=== PATIENT | male | born 1960 | race Caucasian/White ===

== ENCOUNTER 2021-04-24 09:47 | Day surgery (SDC) | payer OTHER, SELFPAY ==
[2021-04-24] VITALS (13 sets, daily range): BP systolic 108–148; BP diastolic 53–88; PULSE 49–63; RESP 14–23; TEMP 36.4; O2SAT 94–98; BMI 27.2
--- NOTE | 2021-04-24 09:52 | XR_ITS ---
WS: [id number] XR chest 1V portable [id number] REASON FOR EXAM: chest pain FINDINGS: The chest is unchanged compared to 03/25/2017. Heart and mediastinum are within normal limits. Calcified granulomatous disease is present in both hemithoraces. No active pulmonary parenchymal or pleural disease. Bony thorax is intact. XR/XR chest 1V portable [id number] IMPRESSION: No acute chest abnormality.
--- NOTE | 2021-04-24 09:52 | ECG_ITS ---
[facility] Test Date: 2021-04-24 Pat Name: Marty Ricks Department: Room: Gender: Male Intervention Teacher: : 1960 Requested By: Codie Jasmine Order Number: [id number] Velasquez MD: Kory Geronimo M.D. Measurements Intervals [place] Rate: 58 P: 17 HI: 154 QRS: 59 QRSD: 86 T: 67 QT: 433 QTc: 428 Interpretive Statements SINUS BRADYCARDIA Compared to ECG 03/25/2017 09:46:05 Sinus rhythm no longer present Electronically Signed On 04-24-2021 18:30:29 ENGINEERING RECRUITER by Kory Geronimo M.D. [email or web address]/[id number]
--- NOTE | 2021-04-24 10:15 | ED_ITS ---
HPI - Chest Pain General: Chief Complaint: ER Hold Stated Complaint: CP Time Seen by Provider: 04/24/21 10:15 History of Present Illness: Mr. Ricks is a 61-year-old gentleman with sig nificant past medical history of hypertension, hyperlipidemia, history of CAD status post PCI who presents to the emergency department due to chest discomfort. He reports over the past few weeks he has had intermittent episodes of discomfort in the left anterior chest without significant radiation. These are typically associated with exertion and he has associated shortness of breath, no nausea, and generalized malaise when present. He presents today as this current episode has not improved like other ones. Previous episodes of lasted into the hours range. They resolved subsequently. Intensity of symptoms is moderate. Course has been worsening in frequency. He denies other specific known changes in health, exacerbating, relieving factors. He has not had recent cardiac evaluation. Pertinent past history: coronary artery disease and prior NC Onset (ago): week(s) Timing of current episode: episodic and constant Prior episodes: Yes Pain location: left chest Severity: moderate Quality: aching Relieving factors: nothing Exacerbating factors: nothing Associated symptoms: Reports no associated symptoms Review of Systems General: Reports: 10 or more systems reviewed and unremarkable except in HPI and below PFSH ED PFSH: Medical History ASHD (arteriosclerotic heart disease) HTN (hypertension) Hyperlipidemia Surgical History S/P PTCA (percutaneous transluminal coronary angioplasty) Status post angioplasty with stent X3 Family History Mother CHF (congestive heart failure) Sister Cancer Diabetes Father Stroke Social History Smoking and tobacco status: former smoker Physical Exam Const: COMMON NORMALS: alert GENERAL APPEARANCE: cooperative and well developed HENMT: COMMON NORMALS: normocephalic and atraumatic HEAD & SCALP: normocephalic and atraumatic Eye: COMMON NORMALS: conjunctivae normal CONJUNCTIVA: Yes conjunctivae normal SCLERA: sclerae normal Neck/C-Spine: COMMON NORMALS: supple GENERAL: Yes trachea midline Resp: COMMON NORMALS: normal respiratory effort and clear to auscultation bilaterally EFFORT & INSPECTION: Yes able to speak in complete sentences AUSCULTATION: clear to auscultation bilaterally Cardio: COMMON NORMALS: regular rate and regular rhythm RATE: regular rate RHYTHM: regular rhythm OTHER: No peripheral edema GI: COMMON NORMALS: Soft to palpation PALPATION: Yes Soft to palpation and No Tenderness to palpation present (GI) PERCUSSION: normal to percussion Extremity: GENERAL: Yes normal exam except as noted and No edema Neuro: COMMON NORMALS: moves all extremities SENSORIUM/ORIENTATION: Yes alert and No Orientation impaired Psych: COMMON NORMALS: mental status grossly normal and Normal thought process present THOUGHT PROCESS: Normal thought process present Course ED course: - Patient was seen and evaluated by me at bedside - Patient placed on cardiac monitors, IV access obtained - Initial evaluation notable for exam as above - Aspirin given - Labs notable for no significant hematologic metabolic abnormalities to explain the patient's symptoms. Delta troponin is negative. - Imaging notable for no lobar consolidation or other acute abnormality to explain symptoms on chest x-ray - Upon serial reexamination after treatment the patient was similar - Discussed with cardiology - Based on patient history, evaluation, labs, and imaging as interpreted the most likely cause of the patient's condition is unstable angina - The results of ED evaluation were discussed with the patient including plan for admission due to requirement for level of care not available if discharged to prevent significant worsening/deterioration. - Admitting service was contacted and Dr Zarco with the hospitalist service agreed to admit the patient - Patient was admitted without further deterioration or significant events. Note: Click bubbles or prepopulated lynch in note writing are used for assistance with data collection and billing and are inherently more limited than narrative and other text portions of this note. Please use narrative for additional clinical history and defer to narrative/free test for any case of contradictory information. If information appears in only free text or click bubble it should be considered present or absent as reported. Please contact note functional tester typewriters for clarifications of clinical information or contradictory information. MDM is a brief summary, contradictory or erroneous seeming information should be clarified and full note should be reviewed. Vital Signs: Vital signs: Vital Signs Temperature 97.6 F 04/24/21 10:02 Pulse Rate 78 04/25/21 16:15 Respiratory Rate 18 04/25/21 16:15 Blood Pressure 128/68 04/25/21 16:15 Pulse Oximetry 96 04/25/21 16:15 MDM - Chest Pain Medical Decision Making 61-year-old gentleman with history of CAD and history of PCI who does not frequently have chest pain presenting with few week history of increasing frequency chest pain. Episode today did not improve like previous episodes and he presented to clinic and was referred to ED for unstable angina. EKG is nonischemic and troponins in the emergency department are negative. Patient admitted for further definitive management and testing. Medical Records I reviewed the patient's medical records. Lab Data I reviewed the patient's lab results. : 04/24/21 10:33 04/25/21 09:35 Radiology Impressions Chest X-Ray 04/24/21 09:52 IMPRESSION: No acute chest abnormality. Laboratory Results WBC 5.5 10^3/uL (4.0-10.0) 04/24/21 10:33 RBC 4.47 10^6/uL (4.1-5.3) 04/24/21 10:33 Hgb 13.9 g/dL (11.7-16.6) 04/24/21 10:33 Hct 41.6 % (42.0-52.0) L 04/24/21 10:33 MCV 93.1 fl (80-94) 04/24/21 10:33 MCH 31.1 pg (28.0-34.0) 04/24/21 10:33 MCHC 33.4 g/dL (30.0-36.0) 04/24/21 10:33 RDW 13.5 % (12.1-15.1) 04/24/21 10:33 Plt Count 284 10^3/cmm (130-400) 04/24/21 10:33 MPV 10.7 fL (7.4-10.4) H 04/24/21 10:33 Neut % (Auto) 62.0 % 04/24/21 10:33 Lymph % (Auto) 29.3 % 04/24/21 10:33 [place] % (Auto) 6.9 % 04/24/21 10:33 Eos % (Auto) 1.1 % 04/24/21 10:33 Baso % (Auto) 0.5 % 04/24/21 10:33 Neut # (Auto) 3.39 10^3/uL (1.8-7.7) 04/24/21 10:33 Lymph # (Auto) 1.6 10^3/uL (0.8-4.8) 04/24/21 10:33 [place] # (Auto) 0.4 10^3/uL (0.2-0.9) 04/24/21 10:33 Eos # (Auto) 0.1 10^3/uL (0.0-0.8) 04/24/21 10:33 Baso # (Auto) 0.0 10^3/uL (0.0-0.1) 04/24/21 10:33 Nucleated RBC % (auto) 0 % 04/24/21 10:33 Nucleated RBCs # 0.0 /100WBC 04/24/21 10:33 D-Dimer 0.48 ug/mIFEU (0-0.59) 04/24/21 16:36 Sodium 139 mmol/L (136-145) 04/25/21 09:35 Potassium 4.2 mmol/L (3.5-5.1) 04/25/21 09:35 Chloride 102 mmol/L (98-107) 04/25/21 09:35 Carbon Dioxide 23 mmol/L (22-29) 04/25/21 09:35 Anion Gap 18.2 (5-19) 04/25/21 09:35 BUN 15 mg/dL (6-20) 04/25/21 09:35 Creatinine 0.9 mg/dL (0.7-1.2) 04/25/21 09:35 GFR Calculation 86.4 mL/min (90-130) L 04/25/21 09:35 Glucose 114 mg/dL (65-115) 04/25/21 09:35 Calculated Osmolality 290 mOsm/kg (285-295) 04/25/21 09:35 Calcium 10.0 mg/dL (8.5-10.5) 04/25/21 09:35 Total Bilirubin 0.5 mg/dL (0.15-1.2) 04/24/21 10:33 AST 27 U/L (0-40) 04/24/21 10:33 ALT 14 U/L (0-41) 04/24/21 10:33 Alkaline Phosphatase 80 IU/L (40-130) 04/24/21 10:33 Troponin T Baseline 6 ng/L (0-15) 04/24/21 10:33 Troponin T 120 Minute 6.75 ng/L (0-15) 04/24/21 12:20 Delta Troponin T TNP 04/24/21 12:20 Troponin T Hi Sens 6Hr 6.00 ng/L (0-15) 04/24/21 16:36 Troponin T Hi Sens 6Hr Delta 0 ng/L (0-12) 04/24/21 16:36 Total Protein 7.1 g/dL (6.6-8.7) 04/24/21 10:33 Albumin 4.3 g/dL (3.5-5.2) 04/24/21 10:33 Globulin 2.8 g/dL (1.3-4.6) 04/24/21 10:33 EKG Data EKG 1: I personally reviewed and interpreted this EKG as follows: EKG interpretation date: 04/24/21 EKG interpretation time: 10:14 Interpretation: Twelve-lead EKG shows a regular rhythm at a rate of 58. NJ interval 154. QRS duration 86. QTc 430. Normal [place]. Interpretation: Sinus rhythm. Bradycardia. EKG 2: I personally reviewed and interpreted this EKG as follows: EKG interpretation date: 04/24/21 EKG interpretation time: 11:57 Interpretation: Twelve-lead EKG shows a regular rhythm at a rate of 54. NJ interval 169. QRS duration 94. QTc 438. Normal [place]. Interpretation: Sinus rhythm. Bradycardia. EKG 3: I personally reviewed and interpreted this EKG as follows: EKG interpretation date: 04/24/21 EKG interpretation time: 13:39 Interpretation: Twelve-lead EKG shows a regular rhythm at a rate of 50. NJ interval 169. QRS duration 92. QTc 431. Normal [place]. Interpretation: Sinus rhythm. Bradycardia. Discharge Plan Discharge Patient Disposition: Placed in Observation Clinical Impression: Unstable angina Discharge Diet: Cardiac Coding Level of Care Code ED Auto Body Service Mechanic for Chg Fwd Exam Comprehensive
[2021-04-24 10:41] LABS: Basophils % 0.5 %; Eosinophils # 0.1 10^3/uL (0.0-0.8); Eosinophils % 1.1 %; Hematocrit 41.6 % (42.0-52.0); Hemoglobin 13.9 g/dL (11.7-16.6); Lymphocytes # 1.6 10^3/uL (0.8-4.8); Lymphocytes % 29.3 %; Mean Corpuscular HGB Conc 33.4 g/dL (30.0-36.0); Mean Corpuscular Hemoglobin 31.1 pg (28.0-34.0); Mean Corpuscular Volume 93.1 fl (80-94); Mean Platelet Volume 10.7 fL (7.4-10.4); Monocytes # 0.4 10^3/uL (0.2-0.9); Monocytes % 6.9 %; Neutrophils # 3.39 10^3/uL (1.8-7.7); Nucleated Red Blood Cells % 0 %; Platelet Count 284 10^3/cmm (130-400); Red Blood Count 4.47 10^6/uL (4.1-5.3); Red Cell Distribution Width 13.5 % (12.1-15.1); White Blood Count 5.5 10^3/uL (4.0-10.0)
[2021-04-24 11:18] LABS: Albumin Level 4.3 g/dL (3.5-5.2); Alkaline Phosphatase 80 IU/L (40-130); Blood Urea Nitrogen 12 mg/dL (6-20); Calcium 8.7 mg/dL (8.5-10.5); Carbon Dioxide 22 mmol/L (22-29); Chloride 103 mmol/L (98-107); Globulin 2.8 g/dL (1.3-4.6); Glomerular Filtration Rate 98.9 mL/min (90-130); Glucose 95 mg/dL (65-115); Osmolality Calculated 284 mOsm/kg (285-295); Sodium 137 mmol/L (136-145); Total Bilirubin 0.5 mg/dL (0.15-1.2); Total Protein 7.1 g/dL (6.6-8.7)
[2021-04-24 11:23] LABS: Alanine Aminotransferase 14 U/L (0-41); Anion Gap 16.7 (5-19); Aspartate Amino Transferase 27 U/L (0-40); Potassium 4.7 mmol/L (3.5-5.1); Troponin(5th) Baseline 6 ng/L (0-15)
--- NOTE | 2021-04-24 11:52 | ECG_ITS ---
[facility] Test Date: 2021-04-24 Pat Name: aMrty Ricks Department: Room: Gender: Male Regional Safety Manager: : 1960 Requested By: Codie Jasmine Order Number: [id number] Eva MD: Kory Geronimo M.D. Measurements Intervals [place] Rate: 54 P: 68 MN: 169 QRS: 15 QRSD: 94 T: 57 QT: 453 QTc: 429 Interpretive Statements SINUS BRADYCARDIA Compared to ECG 04/24/2021 10:09:14 No significant changes Electronically Signed On 04-24-2021 18:34:38 CERTIFIED NURSE PRACTITIONER by Kory Geronimo M.D. [email or web address].[email or web address]/store/[id number] f
[2021-04-24 13:11] LABS: Troponin 5 2HR 6.75 ng/L (0-15)
[2021-04-24] MEDS: aspirin 81 mg Chew Tablet 324 MG PO (15:35)
--- NOTE | 2021-04-24 15:52 | ECG_ITS ---
[facility] Test Date: 2021-04-24 Pat Name: Marty Ricks Department: Room: Gender: Male Museum Security Chief: : 1960 Requested By: Codie Jasmine Order Number: [id number] Eva MD: Kory Geronimo M.D. Measurements Intervals [place] Rate: 50 P: 60 CO: 169 QRS: 14 QRSD: 92 T: 57 QT: 458 QTc: 419 Interpretive Statements SINUS BRADYCARDIA Compared to ECG 04/24/2021 11:39:03 No significant changes Electronically Signed On 04-24-2021 18:33:49 VENDING MACHINE COLLECTOR by Kory Geronimo M.D. [email or web address].[employer]/store/[id number] f
--- NOTE | 2021-04-24 16:06 | PM.HP ---
Providers/Chief Complaint Chief Complaint: CP History of Present Illness Marty Ricks is a 61 year old male who carries history of established coronary disease with three stents placed [address] Gons[address]. Presented today [facility] for evaluation of his chest pain. Patient is stating that for last few weeks he has been experiencing reproducible chest pain which he can pinpoint just medial to his left nipple. He works for [employer], active for his age does not smoke or drink alcohol. He mostly experiences pain on exertion which she describing as dull achy pain. It is nonradiating it is not pressure-like sensation he has not experienced any fever sinusitis recent sore throat or emesis. He has noticed mild shortness of breath otherwise remained afebrile. Not complaining of cough. Diagnosis in the ER unremarkable troponin nonsignificant, EKG showing sinus bradycardia, x-ray unremarkable he will be admitted for stress test tomorrow morning Held metoprolol and Plavix at the time of evaluation his left-sided chest pain is reproducible I requested D-dimer Review of Systems Const: Denies: fever(s) or chills Eyes: Denies: change in vision ENMT: Denies: throat pain Card: Reports: chest pain Resp: Reports: dyspnea GI: Denies: abdominal pain : Denies: flank pain Musc: Denies: neck pain Skin/Breast: Denies: rash Neuro: Denies: headache(s) Psych: Denies: anxiety Endo: Denies: polyuria [place]/Lymph: Denies: easy bruising All/Imm: Denies: urticaria Medications/Allergies Home Medications Medication Instructions Recorded Confirmed Last Taken Type aspirin 81 mg tablet,delayed 81 mg PO DAILY 11/29/19 04/24/21 04/24/21 History release (Adult Low Dose Aspirin) nitroglycerin 0.4 mg sublingual 0.4 mg SUBLINGUAL Q5M PRN 11/29/19 04/24/21 Unknown History tablet (Nitrostat) metoprolol tartrate 25 mg tablet 6.25 mg PO BID #45 tab 06/18/20 04/24/21 04/24/21 Rx simvastatin 40 mg tablet 40 mg PO DAILY #90 tab 01/28/21 04/24/21 04/23/21 Rx clopidogrel 75 mg tablet 75 mg PO DAILY #90 tab 03/11/21 04/24/21 04/24/21 Rx Allergies Allergy/AdvReac Type Severity Reaction Status Date / Time codeine Allergy Unknown Unknown Verified 04/24/21 10:02 PFSH Acute PFSH: Medical History ASHD (arteriosclerotic heart disease) HTN (hypertension) Hyperlipidemia Surgical History S/P PTCA (percutaneous transluminal coronary angioplasty) Status post angioplasty with stent X3 Family History Mother CHF (congestive heart failure) Sister Cancer Diabetes Father Stroke Social History Smoking and tobacco status: former smoker Vitals/I&O/Wt Last Vital Signs Temp 97.6 F 04/24/21 10:02 Pulse 63 04/24/21 13:30 Resp 14 04/24/21 13:30 BP 139/88 04/24/21 13:30 Pulse Ox 98 04/24/21 13:30 Weight last 48 hrs Weight 81.193 kg Physical Exam Narrative: EXAM NARRATIVE: Patient sitting at the bedside resting comfortably Saturating well on room air Heart rate in 77 Reproducible left-sided chest pain Bilateral breath sounds without adventitious rhonchi or crackles On room air Nonfocal neuro exam Abdomen soft Healthy looking male Appears stated age Euvolemic EOMI, PERRLA Data : 04/24/21 10:33 04/24/21 10:33 A&P Assessment and plan (1) Unstable angina: Status: Acute Plan Atypical chest pain Reproducible Check D-dimer rule out PE Echo and stress test in the morning N.p.o. after midnight EKG and troponin unremarkable Does not smoke or drink alcohol He is not vaccinated for COVID-19 Saturating well on room air Afebrile No active symptoms of viral symptoms Full code Cardiac diet until midnight Attestations Medical Necessity Statement*: Less than 2 midnights anticipated Time Spent in Patient Care: 35 Coding Level of Care Code Acute Ui Ux Web Developer for Roby Fwsybil Diagnoses Unstable angina I20.0
--- NOTE | 2021-04-24 16:15 | ECG_ITS ---
[facility] Test Date: 2021-04-25 Pat Name: Marty Ricks Department: Room: Gender: Male Hotel Yardperson: : 1960 Requested By: Abhishek Zarco Order Number: [id number] Reading MD: ABHISHEK FITZGERALD Interpretive Statements NAME OF STUDY: LEXISCAN SESTAMIBI STRESS TEST INDICATION: Angina, NOTE: Please note that this is the electrocardiogram portion of the Lexiscan/Sestamibi stress test. The perfusion scan will be documented separately. DATA: Baseline heart rate was 70 beats per minute. Baseline blood pressure was 117/70 millimeters of mercury. Target heart rate was 161. Maximum heart rate achieved was 85. which was 52 % of the predicted target heart rate. Maximum blood pressure was 264/77 millimeters of mercury. The reason for ending the test was completion of the protocol. The patient felt nauseated short of breath and diaphoretic. ELECTROCARDIOGRAM: BASELINE: Sinus rhythm. Normal axis. Otherwise, no ST-T changes suggestive of ischemia noted. No arrhythmia noted. After Lexiscan injection, new left bundle branch block with inferolateral ST depression noted in 3 minutes of the stress test. Recovery: After [address] depression and bundle branch block resolved CONCLUSION: Please note due to baseline abnormality of the EKG specificity and sensitivity of the EKG portion of LexiScan MIBI stress test will be low 1. EKG not equivocal ischemia 2. Lexiscan injection due to EKG changes bundle branch block and diaphoresis, blood pressure response was hypertensive. 3. Perfusion scan will be documented separately. Electronically Signed On 04-25-2021 15:39:07 CARPENTRY SPECIALIST by ABHISHEK FITZGERALD [email or web address]/[id number]
[2021-04-24 16:57] LABS: D Dimer 0.48 ug/mIFEU (0-0.59)
[2021-04-24 17:32] LABS: Troponin 5 6HR Delta 0 ng/L (0-12)
[2021-04-25] VITALS (17 sets, daily range): BP systolic 112–134; BP diastolic 59–84; PULSE 53–82; RESP 5–27; O2SAT 93–98
--- NOTE | 2021-04-25 07:12 | PC.NURSE ---
PATIENT ON CONTINUOUS BEDSIDE CARDIAC, BP AND O2 MONITOR.
[2021-04-25] MEDS: regadenoson 0.4 Mg/5 ml Syringe IVP (08:03)
--- NOTE | 2021-04-25 08:07 | PC.NURSE ---
PATIENT GONE TO STRESS TEST OF 730
[2021-04-25] MEDS: aminophylline 25 mg/mL SDV 10 mL IVP (08:15)
--- NOTE | 2021-04-25 09:19 | PC.NURSE ---
0805: Received the patient to [facility] for Lexiscan from Nuclear medicine. Patient in a wheelchair. A & O x 3. Lungs CTAB, patent IV to the left wrist. Sinus rythm with a rate of 82. BP 117/75, Room air O2 98%. Stress test completed. During the Lexiscan the patient had rhythm changes, became pale and diaphoretic, was hypertensive with a max BP of 264/161 and then hypotensive with low of 80/50. No chest pain was reported. The patient stated that he just felt very weak. Aminophylline 125mg IV total was given in 25mg increments per protocol. The patient recovered 18 minutes and was stable on discharge to Nuclear Medicine for his stress images. BP 101/53, SB-SR with rate of 55-60's, 95% on room air. His color had returned to normal and he was no longer diaphoretic. Report was given to Clark [employer] tech. At 0855 Dr. Zarco was notified and did not answer the telephone, a message was left on his voice mail. The ER nurseYarely was called report and to keep the NPO just in case the patient goes for an angiogram later today.
[2021-04-25] MEDS: aspirin 81 mg EC Tablet PO (09:23)
[2021-04-25] MEDS: atorvastatin 40 mg Tablet 20 MG PO (09:23)
[2021-04-25] MEDS: sennosides-docusate Tablet 1 TAB PO (09:23)
--- NOTE | 2021-04-25 09:54 | XACV_ITS ---
Exam Room: [facility] Ht: 173 cm Wt: 81 kg BSA: 1.99 m2 Gender: Male : 1960 Any Known Allergies: Codeine Exam Priority: Routine Procedure(s): Procedure Description: Diagnostic procedure Procedure Description: Coronary Angiography Diagnostic Cath Status: Urgent Diagnostic Findings * Left Main has no disease. * Left Anterior Descending has no disease. * Circumflex has no disease. * Proximal Right Coronary Artery: mild 40% stenosis, RACHEL: 3 flow. * 2nd Diagonal: mild 40% stenosis, RACHEL: 3 flow. * Coronary angiography shows right dominance. Conclusions 1. There is mild coronary artery disease with one vessel disease. Recommendations * Continue current medical management and risk factor modification. Diagnostic RX Recommendation: medical therapy and/or counseling Pressures Phase:Rest AO : / ( 0 ) @ 10:48:00 AM Clinical Evaluation EBL: 5mL-10mL Procedural Details Procedure Consent Obtained. Pre-Procedure Time Out. Identified patient by full name and date of as verbalized by the patient/guarantor. Does the consent match the physician's order: Yes. Accurate & Complete Informed Consent: Yes. Inpatient/Outpatient History & Physical on Chart: Yes. If H&P is completed, is and addenduem needed: No; If yes, is the addendum complete: No. Visualize and Verify Site with Patient/Guarantor: N/A. Relevant Radiology Images available: N/A. The risks, benefits, and alternatives of sedation and/or procedure were discussed by physician. The patient agrees to continue. Procedure started. HA Clinical Fraility Score: 3: Managing Well. Technology Development Intern Indications: Cardiac Arrhythmia. Technology Development Intern Indications: Worsening Angina. Chest Pain Symptom Assessment: Atypical Angina. Correct patient, site and procedure confirmed by cath team. Current diagnosis: Chest Pain, positive stress test. PERRLA. Strong, equal hand branch sales manager bilaterally. Lungs clear x 5 lobes. IV Site on Arrival: 18 gauge in the left wrist. IV Fluids: 0.9% NaCl at KVO. 0 mL infused prior to lab coordinator. Pre Procedural Pulses: bilateral radial was 3+. Oxygen started at 2liters/min via nasal canula. right radial was prepped with chloroprep then draped in the usual sterile fashion. Physician notified. Pre Procedural Pulses: bilateral dorsalis pedis was 2+. Baseline sample Acquired. HR: 66 BPM. Physician arrived. Physician scrubbed in. Immediate Pre-Procedure Time Out. Correct Patient: Yes; Correct Procedure: Yes; Correct Site: Yes; Correct Patient Position: Yes; Correct Supplies: Yes; Dried Flammable Prep: Yes; Blood Products Available: No;. Lidocaine 1% infiltrated to the right radial. Arterial access obtained. A 5 chinese TIG catheter in over wire. Multiple views taken of left coronary artery. Catheter redirected to the RCA. Multiple views taken of right coronary artery. Catheter removed over the standard wire. Wire out. Total IV fluids: 21.1 mL. Medication's Wasted: Lidocaine 1% = 18 mL. Medication's Wasted: Heparin = 1000units. Medication's Wasted: Nitro = 49.8 mg. No VTE prophylaxis required. PERRLA. Strong, equal hand branch sales manager bilaterally. Post Procedure: Pulses reassessed and unchanged. A TR Band was successful obtaining hemostatsis at the Right Radial artery insertion site. Post-op diagnosis: Non-obstructive CAD. Complications: None. Estimated blood loss: 5mL-10mL. Responsiveness - Normal response to verbal stimuli; alert and oriented, PERRLA. Airway - Unaffected, no intervention required; spontaneous ventilation. Circulation: W/N/L, pulses unchanged. Nausea/Vomiting: No. Procedure completed. Patient transferred by wheelchair to CPRU. Access Site Site: Right Radial artery Sheath Size: 6 Fr Hemostasis Method: TR Band Hemostasis Success: Successful Procedure Medications Start: 12:54 PM Stop: 12:54 PM Medication: Nitrogylcerin Amount: 200 mcg Route: I.A. Start: 12:56 PM Stop: 12:56 PM Medication: Heparin Amount: 5000 units Route: I.V. I, the attending physician, have reviewed and verified all procedure medications. Yes, all medications given per verbal order History/Risk Factors Hypertension: Yes Dyslipidemia: Yes Peripheral Arterial Disease (PAD): No Myocardial Infarction (ND): No Obesity: No Renal Disease: No Tobacco Use: Former Prior Interventions PCI: Yes CABG: No Valve Surgery: No Date of PCI: 08/26/2015 Report Signatures Finalized by Abhishek Gonsales MD on 05/06/2021 07:29 PM
--- NOTE | 2021-04-25 09:55 | PC.NURSE ---
0945: Dr. Gonsales arrived to view patients stress test EKGs. Orders received for LHC today. Dr. Gonsales verbalized that he would talk to the patient and DR. Qamar. Pritchett, SURVEILLANCE AGENT, was notified by this nurse and orders were placed for C today.
[2021-04-25 10:06] LABS: Anion Gap 18.2 (5-19); Blood Urea Nitrogen 15 mg/dL (6-20); Carbon Dioxide 23 mmol/L (22-29); Chloride 102 mmol/L (98-107); Glomerular Filtration Rate 86.4 mL/min (90-130); Glucose 114 mg/dL (65-115); Osmolality Calculated 290 mOsm/kg (285-295); Potassium 4.2 mmol/L (3.5-5.1); Sodium 139 mmol/L (136-145)
[2021-04-25] MEDS: diphenhydrAMINE 50 mg Capsule PO (10:19)
[2021-04-25] MEDS: clopidogrel 75 mg Tablet PO (10:19)
[2021-04-25] MEDS: sodium chloride 0.9% 1,000 ML 50 ML IV (10:19)
--- NOTE | 2021-04-25 12:03 | PM.CONSULT ---
Providers/Reason For Consult Consulting Physician/Specialty*: Abhishek Gonsales MD Reason for Consult*: Chest pain abnormal EKG changes during stress test Requesting Physician: Dr. Zarco Attending Physician: Abhishek Zarco MD History of Present Illness History of Present Illness Marty Ricks is a 61 year old male past medical history significant for hypertension hyperlipidemia history of coronary artery disease status post drug-eluting stent in 2016 for worsening of chest pain shortness of breath and diaphoresis underwent stress test today EKG portion of the stress test showed new left bundle branch block with diaphoresis shortness of breath it was possible rate related and reverted back to normal after 2 to 3 minutes in the recovery. It is the reason we proceed with coronary angiogram. It showed patent previously placed LAD and circumflex stent RCA has mid 40% nonsignificant stenosis. It was thought chest pain most likely is noncardiac origin. He will be discharged from the hospital. Review of Systems General: Reports: 10 or more systems reviewed and unremarkable except in HPI and below Const: Denies: fever(s) or chills Eyes: Denies: change in vision ENMT: Denies: throat pain Card: Reports: chest pain Resp: Reports: dyspnea GI: Denies: abdominal pain : Denies: flank pain Musc: Denies: neck pain Skin/Breast: Denies: rash Neuro: Denies: headache(s) Psych: Denies: anxiety Endo: Denies: polyuria [place]/Lymph: Denies: easy bruising All/Imm: Denies: urticaria Medications/Allergies Home Medications Medication Instructions Recorded Confirmed Last Taken Type aspirin 81 mg tablet,delayed 81 mg PO DAILY 11/29/19 04/24/21 04/24/21 History release (Adult Low Dose Aspirin) nitroglycerin 0.4 mg sublingual 0.4 mg SUBLINGUAL Q5M PRN 11/29/19 04/24/21 Unknown History tablet (Nitrostat) metoprolol tartrate 25 mg tablet 6.25 mg PO BID #45 tab 06/18/20 04/24/21 04/24/21 Rx simvastatin 40 mg tablet 40 mg PO DAILY #90 tab 01/28/21 04/24/21 04/23/21 Rx clopidogrel 75 mg tablet 75 mg PO DAILY #90 tab 03/11/21 04/24/21 04/24/21 Rx Allergies Allergy/AdvReac Type Severity Reaction Status Date / Time codeine Allergy Unknown Unknown Verified 04/24/21 10:02 Current Medications Generic Name Dose Route Start Last Admin Trade Name Freq PRN Reason Stop Dose Admin Aminophylline 25 mg 04/25/21 06:57 04/25/21 08:15 Aminophylline 25 Mg/Ml Sdv 10 Ml IVP 04/26/21 06:56 25 mg Q2M PRN Administration see dose instructions Aspirin 81 mg 04/25/21 09:00 04/25/21 09:23 Aspirin 81 Mg Ec Tablet PO 81 mg DAILY SAIMA Administration Atorvastatin Calcium 20 mg 04/25/21 09:00 04/25/21 09:23 Atorvastatin 40 Mg Tablet PO 20 mg DAILY SAIMA Administration Clopidogrel Bisulfate 75 mg 04/25/21 10:30 04/25/21 10:19 Clopidogrel 75 Mg Tablet PO 75 mg DAILY SAIMA Administration Sodium Chloride 1,000 mls @ 50 mls/hr 04/25/21 09:54 04/25/21 10:19 Sodium Chloride 0.9% IV 04/26/21 05:53 50 mls/hr .Q20H ONE Administration Senna/Docusate Sodium 1 tab 04/25/21 09:00 04/25/21 09:23 Sennosides-Docusate Tablet PO 1 tab DAILY SAIMA Administration PFSH Acute PFSH: Medical History ASHD (arteriosclerotic heart disease) HTN (hypertension) Hyperlipidemia Surgical History S/P PTCA (percutaneous transluminal coronary angioplasty) Status post angioplasty with stent X3 Family History Mother CHF (congestive heart failure) Sister Cancer Diabetes Father Stroke Social History Smoking and tobacco status: former smoker Dietary Habits: Current diet type/program: regular Vitals/I&O/Wt Last Vital Signs Temp 97.6 F 04/24/21 10:02 Pulse 67 04/25/21 11:18 Resp 22 H 04/25/21 11:18 BP 129/77 04/25/21 11:18 Pulse Ox 94 04/25/21 11:18 Weight last 48 hrs Weight 179 lb Physical Exam Const: COMMON NORMALS: alert Resp: COMMON NORMALS: clear to auscultation bilaterally AUSCULTATION: clear to auscultation bilaterally Cardio: OTHER: GENERAL: Patient is alert, awake and oriented x3. NECK: No jugular vein distension. HEENT: No cyanosis. No icterus. No pallor. HEART: Regular S1 and S2. No murmur, rub or gallop. LUNGS: Clear to auscultate bilaterally. ABDOMEN: Soft, nontender and nondistended. Positive bowel sounds. No guarding, rebound or tenderness. CENTRAL NERVOUS SYSTEM: Grossly nonfocal. EXTREMITIES: Lower extremities without edema bilaterally. Neuro: SENSORIUM/ORIENTATION: Yes alert Data : 04/24/21 10:33 04/25/21 09:35 A&P Assessment and plan (1) Abnormal stress electrocardiogram test: Abnormal EKG portion of stress test with new left bundle branch block during after Lexiscan injection with diaphoresis shortness of breath and chest pressure led to coronary angiogram today which did not show significant obstructive disease patent previously placed LAD and circumflex stent while RCA has nonstenotic lesion of 40%. Advise medical management and extracardiac causes for chest pain should be started Status: Acute (2) HTN (hypertension): Patient appeared to be orthostatic we will give him bolus of IV fluid. 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
--- NOTE | 2021-04-25 12:04 | W.PM.OPSUD ---
Surgery/Procedure H&P Update DATE OF PROCEDURE: April 25, 2021 DATE H&P PERFORMED: 04/25/21 CHANGES TO PREVIOUS DOCUMENTATION: Chest pain with abnormal stress test PRIMARY INDICATION FOR PROCEDURE: Chest pain with abnormal stress test PLANNED PROCEDURE: Patient has been explained all risk benefit and alternative for the procedure. Patient understand risk for stroke major minor bleed vascular injury urgent emergent bypass surgery. He is a candidate for DAPT he would like to proceed with it PATIENT REASSESSED PRIOR TO SEDATION, WITH NO CHANGE NOTED: Yes PHYSICAL EXAM: alert, oriented x 3, clear to auscultation bilaterally and regular rate & rhythm AIRWAY EVAL/ANESTHESIA PLAN: ASA II and Risks, benefits & alternatives of sedation and/or procedure discussed
--- NOTE | 2021-04-25 12:34 | P.PN_ITS ---
Subjective Subjective: Interval history: Positive stress test going for angiogram Vitals/I&O/Wt Last Vital Signs Temp 97.6 F 04/24/21 10:02 Pulse 67 04/25/21 11:18 Resp 22 H 04/25/21 11:18 BP 129/77 04/25/21 11:18 Pulse Ox 94 04/25/21 11:18 Weight last 48 hrs Weight 81.193 kg Physical Exam Narrative: EXAM NARRATIVE: S1, S2 Reproducible chest pain Awake and alert Nonfocal neuro exam Abdomen soft Satting well on room air Data : 04/24/21 10:33 04/25/21 09:35 A&P Assessment and plan (1) Unstable angina: Status: Acute (2) ASHD (arteriosclerotic heart disease): Status: Acute (3) HTN (hypertension): Status: Acute Qualifiers: Hypertension type: essential hypertension Qualified Code(s): I10 - Essential (primary) hypertension Plan Positive stress test, going for angiogram, Attestations Medical Necessity Statement*: Continue medical management Time Spent in Patient Care: 15mins Coding Level of Care Code 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
--- NOTE | 2021-04-25 13:34 | PC.NURSE ---
1315 500 ml bolus started.
--- NOTE | 2021-04-25 16:15 | NMCV_ITS ---
NM miroslava perf SPECT r/s* [id number] Marty Ricks Age: 61 Gender: M : 1960 Exam Date: 04/25/2021 16:15 Ordering Phys: Abhishek Zarco MD Technologist: KAMILAH Brothers Exam Location: [facility] Indications: Chest pain STRESS TEST Please see separate stress test report in [facility] for full findings IMAGE PROTOCOL Rest/Stress 1 Lexiscan Day Radiopharmaceutical Dose (mCi) Administration Site Administered by Rest: Tc-99m 10.9 IV KAMILAH Brothers Sestamibi Stress:Tc-99m 33.0 IV KAMILAH Brothers Sestamibi Rest: 25-Apr-2021 60 Discovery 630 Stress: 25-Apr-2021 45 Discovery 630 0.4mg Lexiscan. Images obtained in supine and prone position. SPECT RESULTS Technical Quality: Excellent Raw Data Analysis: Normal Image Corrections: Patient motion artifact -partial motion correction applied to prone image Summed Stress Score: 0 Summed Rest Score: 1 Summed Difference Score: 0 PERFUSION FINDINGS SPECT images demonstrate homogeneous tracer distribution throughout the myocardium. FUNCTIONAL RESULTS (calculated via Gated SPECT) Stress Image LV EF (%): 65 Stress EDV (mL):114 TID: 0.88 Stress ESV (mL):40 FUNCTIONAL FINDINGS: There is normal left ventricular systolic function. IMPRESSIONS 1. Normal myocardial perfusion imaging with no evidence of ischemia 2. LV systolic function is normal Kory Geronimo MD (Electronically Signed) Final Date: 25 April 2021 10:35 S
--- NOTE | 2021-04-25 16:30 | PC.NURSE ---
The deflation of the TR Band went very well with no redness, bleeding, or swelling noted. PMS unchanged from pre cath findings. IV removal was tolerated well with no redness swelling or bleeding noted. 700 ml NS infused. Catheter was intact.
--- NOTE | 2021-04-25 18:36 | PM.DCS ---
Discharge Providers Date of Discharge: April 25, 2021 Attending Provider at Discharge: Abhishek Gonsales MD Diagnoses at Discharge Discharge Diagnosis (1) Abnormal stress electrocardiogram test: Status: Acute (2) HTN (hypertension): Status: Acute Qualifiers: Hypertension type: essential hypertension Qualified Code(s): I10 - Essential (primary) hypertension Reason for Visit Reason for Visit: CP Hospital Course Hospital Course Patient was admitted for management & evaluation of chest pain. [facility] for his reproducible chest pain. In the ER D-dimer unremarkable, troponins were flat, no significant delta, EKG without seeing him ischemic or infarctive changes. Next day he went for a stress test which was positive, during the stress test he started showing ST depression and changes related to left bundle branch block. Rate related block. Dr. Gonsales took him for angiogram, It showed patent previously placed LAD and circumflex stent RCA has mid 40% nonsignificant stenosis.? It was thought chest pain most likely is noncardiac origin. Dr. Gonsales recommended discharge after his angiogram. Med rec was done by him as well He updated me over the phone that after angiogram he is planning to discharge the patient. 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 Laboratory Results WBC 5.5 10^3/uL (4.0-10.0) 04/24/21 10:33 RBC 4.47 10^6/uL (4.1-5.3) 04/24/21 10:33 Hgb 13.9 g/dL (11.7-16.6) 04/24/21 10:33 Hct 41.6 % (42.0-52.0) L 04/24/21 10:33 MCV 93.1 fl (80-94) 04/24/21 10:33 MCH 31.1 pg (28.0-34.0) 04/24/21 10:33 MCHC 33.4 g/dL (30.0-36.0) 04/24/21 10:33 RDW 13.5 % (12.1-15.1) 04/24/21 10:33 Plt Count 284 10^3/cmm (130-400) 04/24/21 10:33 MPV 10.7 fL (7.4-10.4) H 04/24/21 10:33 Neut % (Auto) 62.0 % 04/24/21 10:33 Lymph % (Auto) 29.3 % 04/24/21 10:33 [place] % (Auto) 6.9 % 04/24/21 10:33 Eos % (Auto) 1.1 % 04/24/21 10:33 Baso % (Auto) 0.5 % 04/24/21 10:33 Neut # (Auto) 3.39 10^3/uL (1.8-7.7) 04/24/21 10:33 Lymph # (Auto) 1.6 10^3/uL (0.8-4.8) 04/24/21 10:33 [place] # (Auto) 0.4 10^3/uL (0.2-0.9) 04/24/21 10:33 Eos # (Auto) 0.1 10^3/uL (0.0-0.8) 04/24/21 10:33 Baso # (Auto) 0.0 10^3/uL (0.0-0.1) 04/24/21 10:33 Nucleated RBC % (auto) 0 % 04/24/21 10:33 Nucleated RBCs # 0.0 /100WBC 04/24/21 10:33 D-Dimer 0.48 ug/mIFEU (0-0.59) 04/24/21 16:36 Sodium 139 mmol/L (136-145) 04/25/21 09:35 Potassium 4.2 mmol/L (3.5-5.1) 04/25/21 09:35 Chloride 102 mmol/L (98-107) 04/25/21 09:35 Carbon Dioxide 23 mmol/L (22-29) 04/25/21 09:35 Anion Gap 18.2 (5-19) 04/25/21 09:35 BUN 15 mg/dL (6-20) 04/25/21 09:35 Creatinine 0.9 mg/dL (0.7-1.2) 04/25/21 09:35 GFR Calculation 86.4 mL/min (90-130) L 04/25/21 09:35 Glucose 114 mg/dL (65-115) 04/25/21 09:35 Calculated Osmolality 290 mOsm/kg (285-295) 04/25/21 09:35 Calcium 10.0 mg/dL (8.5-10.5) 04/25/21 09:35 Total Bilirubin 0.5 mg/dL (0.15-1.2) 04/24/21 10:33 AST 27 U/L (0-40) 04/24/21 10:33 ALT 14 U/L (0-41) 04/24/21 10:33 Alkaline Phosphatase 80 IU/L (40-130) 04/24/21 10:33 Troponin T Baseline 6 ng/L (0-15) 04/24/21 10:33 Troponin T 120 Minute 6.75 ng/L (0-15) 04/24/21 12:20 Delta Troponin T TNP 04/24/21 12:20 Troponin T Hi Sens 6Hr 6.00 ng/L (0-15) 04/24/21 16:36 Troponin T Hi Sens 6Hr Delta 0 ng/L (0-12) 04/24/21 16:36 Total Protein 7.1 g/dL (6.6-8.7) 04/24/21 10:33 Albumin 4.3 g/dL (3.5-5.2) 04/24/21 10:33 Globulin 2.8 g/dL (1.3-4.6) 04/24/21 10:33 Vitals Last Vital Signs Temp 97.6 F 04/24/21 10:02 Pulse 78 04/25/21 16:15 Resp 18 04/25/21 16:15 BP 128/68 04/25/21 16:15 Pulse Ox 96 04/25/21 16:15 Discharge Plan Discharge Patient Disposition: Home Condition: Stable Prescriptions: Continued aspirin [Adult Low Dose Aspirin] 81 mg tablet,delayed release (DR/EC) 81 mg PO DAILY 0RF nitroglycerin [Nitrostat] 0.4 mg tablet, sublingual 0.4 mg SUBLINGUAL Q5M PRN (Reason: Chest Pain) 0RF Rx Instructions: do not exceed 3 doses per episode metoprolol tartrate 25 mg tablet 6.25 mg PO BID Qty: 45 3RF simvastatin 40 mg tablet 40 mg PO DAILY Qty: 90 3RF clopidogrel 75 mg tablet 75 mg PO DAILY Qty: 90 3RF Discharge Orders: Discharge Order (Routine); Ordered 04/25/21 Ordered By: Abhishek Gonsales Referrals: Kory Geronimo M.D [Physician] - (Please call [facility] to confirm your [address] Geronimo.) Discharge Diet: Cardiac Patient Instructions: After Radial Heart Catheterization (GEN) Activity Restrictions/Additional Instructions: Follow-up with Dr. Geronimo in 6 months Discharge Attestations Time Spent in Discharge Care*: less than 30 min Quality Metrics Clinical Quality Measures [ No reported AMI, CVA or VTE this stay] Coding Level of Care Code Acute Chg DC note Diagnoses Abnormal stress electrocardiogram test R94.39 HTN (hypertension) I10 Hypertension type: essential hypertension
== END 2021-04-25 16:15 | disposition home or self-care (01) ==
LOC: ER 04-25 08:06 → CCL 04-25 12:54
PROVIDERS: Internal Medicine; Physician Assistant; Emergency Provider Emergency Medicine; Visit Provider Internal Medicine Cardiovascular Disease
DX: I25.110 Atherosclerotic heart disease of native coronary artery with unstable angina pectoris (principal); I10 Essential (primary) hypertension; E78.5 Hyperlipidemia, unspecified; Z95.5 Presence of coronary angioplasty implant and graft; Z79.82 Long term (current) use of aspirin; Z82.49 Family history of ischemic heart disease and other diseases of the circulatory system; Z83.3 Family history of diabetes mellitus
CPT/HCPCS: 36415; 71045; 78452; 80048; 80053; 84484; 85025; 85378; 93005; 93454; A9500; C1769; C1887; C1894; J0280; J1644; J2250; J2785; J3010; J3490; J7030; Q0163; Q9967

== ENCOUNTER 2022-12-09 12:21 | Emergency (ER) | payer OTHER, SELFPAY ==
[2022-12-09 12:23] VITALS: BMI 25.8
[2022-12-09 12:28] VITALS: BP 130/77; PULSE 52; RESP 16; TEMP 36.4; O2SAT 96
--- NOTE | 2022-12-09 12:52 | ECG_ITS ---
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 Measurements Intervals [place] Rate: 48 P: 65 UT: 173 QRS: 33 QRSD: 92 T: 63 QT: 478 QTc: 429 Interpretive Statements SINUS BRADYCARDIA Compared to ECG 04/24/2021 13:37:45 No significant changes Electronically Signed On 12-09-2022 16:35:26 CDT by Kory Geronimo M.D. [email or web address]
--- NOTE | 2022-12-09 12:52 | XRR_ITS ---
PROCEDURE INFORMATION: Exam: XR Chest Exam date and time: 12/09/2022 1:05 PM Age: 62 years old Clinical indication: Other: Weakness; Prior surgery; Surgery date: 6+ months; Surgery type: Cardiac stent placement of unknown date. TECHNIQUE: Imaging protocol: Radiologic exam of the chest. Views: 1 view. COMPARISON: CR XR chest 1V portable [id number] 04/24/2021 9:59 AM FINDINGS: Lungs: Stable minimal scarring in the area of the lingula. The right lung is clear. Pleural spaces: Unremarkable. No pleural effusion. No pneumothorax. Heart/Mediastinum: Unremarkable. No cardiomegaly. Bones/joints: Unremarkable. XR/XR chest 1V portable [id number] IMPRESSION: No acute findings.
--- NOTE | 2022-12-09 12:55 | W.ED.WEAKNES ---
HPI - Weakness General: Chief complaint: Weakness Stated complaint: weakness Time Seen by Provider: 12/09/22 12:27 Source: patient Mode of arrival: ambulatory Limitations: no limitations History of Present Illness: 62-year-old male states that he had an episode of some slight chest pain on Thursday states it lasted roughly an hour or 2 states its been resolved since then but he states that since then he just felt really tired states he had no energy states that today his boss recommended him to come in because he is just been feeling weak and tired. He denies any pain currently has not had that pain since Thursday denies any shortness of breath denies any fever denies any dysuria Associated symptoms: Reports chest pain; Denies chills, fever(s), headache(s), nausea or vomiting Review of Systems Const: Reports: fatigue and malaise; Denies: fever(s) or chills ENMT: Denies: throat pain or dental pain Card: Reports: chest pain Resp: Denies: dyspnea GI: Denies: abdominal pain, nausea, vomiting or diarrhea Musc: Denies: neck pain or back pain Skin/Breast: Denies: rash Neuro: Denies: headache(s) PFSH ED PFSH: Medical History ASHD (arteriosclerotic heart disease) Bluish skin discoloration HTN (hypertension) Hyperlipidemia Unstable angina Surgical History S/P PTCA (percutaneous transluminal coronary angioplasty) Status post angioplasty with stent X3 Family History Mother CHF (congestive heart failure) Sister Cancer Diabetes Father Stroke Social History Smoking and tobacco status: former smoker Physical Exam Const: COMMON NORMALS: no acute distress, patient oriented x3 and healthy appearing HENMT: COMMON NORMALS: normocephalic and atraumatic HEAD & SCALP: normocephalic and atraumatic Eye: COMMON NORMALS: Equal, round and reactive pupils present and EOMs intact bilaterally PUPIL: Yes Equal, round and reactive pupils present Neck/C-Spine: COMMON NORMALS: full ROM and supple Chest: COMMONS NORMALS: normal inspection of the chest and normal palpation of entire chest wall Resp: COMMON NORMALS: normal respiratory effort, No retractions, No use of accessory muscles and clear to auscultation bilaterally AUSCULTATION: clear to auscultation bilaterally Cardio: COMMON NORMALS: regular rate, regular rhythm and No murmurs present (Cardio) RATE: regular rate RHYTHM: regular rhythm GI: COMMON NORMALS: Normal to inspection, nondistended, normoactive bowel sounds present, Soft to palpation, non-tender and no masses PALPATION: Yes Soft to palpation Extremity: COMMON NORMALS: normal to inspection and full ROM Neuro: COMMON NORMALS: patient oriented x3, moves all extremities and no focal motor deficits Psych: COMMON NORMALS: mental status grossly normal, Normal thought process present and cooperative THOUGHT PROCESS: Normal thought process present Skin: COMMON NORMALS: no rashes or lesions noted and no wounds GENERAL SKIN EXAM: no rashes or lesions noted Course Vital Signs: Vital signs: Vital Signs Temperature 97.6 F 12/09/22 12:28 Pulse Rate 52 L 12/09/22 12:28 Respiratory Rate 16 12/09/22 12:28 Blood Pressure 130/77 12/09/22 12:28 Pulse Oximetry 96 12/09/22 12:28 Oxygen Delivery Me thod Room Air 12/09/22 12:28 MDM - Weakness Medical Decision Making Patient presents for some generalized weakness he had chest pain on Thursday his troponin here is negative blood work here is all negative he does have some sinus bradycardia he is on metoprolol likely causing this no severe bradycardia his blood pressures been normal 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 Lab Data I reviewed the patient's lab results. 12/09/22 13:00 12/09/22 13:00 Laboratory Results WBC 5.48 10^3/uL (3.29-11.43) 12/09/22 13:00 RBC 4.03 10^6/uL (3.85-5.65) 12/09/22 13:00 Hgb 12.80 g/dL (11.27-16.99) 12/09/22 13:00 Hct 37.5 % (37-53) 12/09/22 13:00 MCV 93.1 fl (82-101) 12/09/22 13:00 MCH 31.8 pg (27-33) 12/09/22 13:00 MCHC 34.1 g/dL (30-55) 12/09/22 13:00 RDW 13.2 % (12.1-15.1) 12/09/22 13:00 Plt Count 200 10^3/cmm (157-399) 12/09/22 13:00 MPV 10.7 fL (7.4-10.4) H 12/09/22 13:00 Neut % (Auto) 62.3 % 12/09/22 13:00 Lymph % (Auto) 29.7 % 12/09/22 13:00 [place] % (Auto) 6.2 % 12/09/22 13:00 Eos % (Auto) 1.1 % 12/09/22 13:00 Baso % (Auto) 0.5 % 12/09/22 13:00 Neut # (Auto) 3.41 10^3/uL (1.8-7.7) 12/09/22 13:00 Lymph # (Auto) 1.6 10^3/uL (0.8-4.8) 12/09/22 13:00 [place] # (Auto) 0.3 10^3/uL (0.2-0.9) 12/09/22 13:00 Eos # (Auto) 0.1 10^3/uL (0.0-0.8) 12/09/22 13:00 Baso # (Auto) 0.0 10^3/uL (0.0-0.1) 12/09/22 13:00 Nucleated RBC % (auto) 0 % 12/09/22 13:00 Nucleated RBCs # 0.0 /100WBC 12/09/22 13:00 Sodium 140 mmol/L (136-145) 12/09/22 13:00 Potassium 4.0 mmol/L (3.5-5.1) 12/09/22 13:00 Chloride 105 mmol/L (98-107) 12/09/22 13:00 Carbon Dioxide 26 mmol/L (22-29) 12/09/22 13:00 Anion Gap 13.0 (5-19) 12/09/22 13:00 BUN 14 mg/dL (8-23) 12/09/22 13:00 Creatinine 1.1 mg/dL (0.7-1.2) 12/09/22 13:00 GFR Calculation 68.3 mL/min (90-130) L 12/09/22 13:00 Glucose 87 mg/dL (65-115) 12/09/22 13:00 Calculated Osmolality 290 mOsm/kg (285-295) 12/09/22 13:00 Calcium 8.7 mg/dL (8.5-10.5) 12/09/22 13:00 Total Bilirubin 0.6 mg/dL (0.15-1.2) 12/09/22 13:00 AST 23 U/L (0-40) 12/09/22 13:00 ALT 15 U/L (0-41) 12/09/22 13:00 Alkaline Phosphatase 56 U/L (40-130) 12/09/22 13:00 Troponin T Baseline < 6 ng/L (0-15) 12/09/22 13:00 Total Protein 6.5 g/dL (6.6-8.7) L 12/09/22 13:00 Albumin 4.5 g/dL (3.5-5.2) 12/09/22 13:00 Globulin 2.0 g/dL (1.3-4.6) 12/09/22 13:00 TSH 1.02 uIU/mL (0.27-4.20) 12/09/22 13:00 Urine Color Yellow (Yellow) 12/09/22 13:34 Urine Appearance Clear (CLEAR) 12/09/22 13:34 Urine pH 6 (5-7) 12/09/22 13:34 Ur Specific [place] 1.015 (1.005-1.030) 12/09/22 13:34 Urine Protein Neg (Negative) 12/09/22 13:34 Urine Glucose (UA) Norm (Normal) 12/09/22 13:34 Urine Ketones Negative (Negative) 12/09/22 13:34 Urine Blood Neg (Negative) 12/09/22 13:34 Urine Nitrate Negative (Negative) 12/09/22 13:34 Urine Bilirubin Neg (Negative) 12/09/22 13:34 Urine Urobilinogen Norm mg/dL (Negative) 12/09/22 13:34 Ur Leukocyte Esterase Negative (Negative) 12/09/22 13:34 All radiology interpretation(s) finalized by discharge EKG Data EKG 1: I personally reviewed and interpreted this EKG as follows: EKG interpretation date: 12/09/22 EKG interpretation time: 13:06 Interpretation: sinus doc hr [address] or t wave abnormalities qrs 92 qtc 444 Discharge Plan Discharge Patient Disposition: Home Clinical Impression: Weakness Condition: Stable Prescriptions: No Action aspirin [Adult Low Dose Aspirin] 81 mg tablet,delayed release (DR/EC) 81 mg PO DAILY nitroglycerin [Nitrostat] 0.4 mg tablet, sublingual 0.4 mg SUBLINGUAL Q5M PRN (Reason: Chest Pain) Rx Instructions: do not exceed 3 doses per episode clopidogrel 75 mg tablet 75 mg PO DAILY Qty: 90 3RF simvastatin 40 mg tablet 40 mg PO DAILY Qty: 90 3RF metoprolol tartrate 25 mg tablet 6.25 mg PO BID Qty: 45 3RF Discharge Orders: Discharge ED (Routine); Ordered 12/09/22 Ordered By: Marissa Barnes Discharge Diet: Advance as tolerated Discharge Activity: Resume usual activity Patient Instructions: Weakness (ED) Coding Level of Care Code ED Director Of 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
[2022-12-09 13:09] LABS: Basophils % 0.5 %; Eosinophils # 0.1 10^3/uL (0.0-0.8); Eosinophils % 1.1 %; Hematocrit 37.5 % (37-53); Lymphocytes # 1.6 10^3/uL (0.8-4.8); Lymphocytes % 29.7 %; Mean Corpuscular HGB Conc 34.1 g/dL (30-55); Mean Corpuscular Hemoglobin 31.8 pg (27-33); Mean Corpuscular Volume 93.1 fl (82-101); Mean Platelet Volume 10.7 fL (7.4-10.4); Monocytes # 0.3 10^3/uL (0.2-0.9); Monocytes % 6.2 %; Neutrophils # 3.41 10^3/uL (1.8-7.7); Neutrophils % 62.3 %; Nucleated Red Blood Cells % 0 %; Platelet Count 200 10^3/cmm (157-399); Red Blood Count 4.03 10^6/uL (3.85-5.65); Red Cell Distribution Width 13.2 % (12.1-15.1); White Blood Count 5.48 10^3/uL (3.29-11.43)
[2022-12-09] MEDS: sodium chloride 0.9% 1,000 ML 999 ML IV (13:19)
[2022-12-09 13:25] LABS: Troponin(5th) Baseline < 6 ng/L (0-15)
[2022-12-09 13:36] LABS: Alanine Aminotransferase 15 U/L (0-41); Albumin Level 4.5 g/dL (3.5-5.2); Alkaline Phosphatase 56 U/L (40-130); Aspartate Amino Transferase 23 U/L (0-40); Blood Urea Nitrogen 14 mg/dL (8-23); Calcium 8.7 mg/dL (8.5-10.5); Carbon Dioxide 26 mmol/L (22-29); Chloride 105 mmol/L (98-107); Glomerular Filtration Rate 68.3 mL/min (90-130); Glucose 87 mg/dL (65-115); Osmolality Calculated 290 mOsm/kg (285-295); Sodium 140 mmol/L (136-145); Thyroid Stimulating Hormone 1.02 uIU/mL (0.27-4.20); Total Bilirubin 0.6 mg/dL (0.15-1.2); Total Protein 6.5 g/dL (6.6-8.7)
[2022-12-09 13:41] LABS: Add Urine Microscopic? NO; Charge for UA Resulting for Rev
[2022-12-09 13:46] LABS: Urine Appearance Clear (CLEAR); Urine Color Yellow (Yellow)
[2022-12-09 13:47] LABS: Bilirubin Urine Neg (Negative); Blood Urine Neg (Negative); Glucose Urine UA Norm (Normal); Ketones Urine Negative (Negative); Leukocyte Esterase Urine Negative (Negative); Nitrate Urine Negative (Negative); Protein Urine Neg (Negative); Specific Gravity, Urine 1.015 (1.005-1.030); Urobilinogen Urine Norm (Negative); pH Urine 6 (5-7)
[2022-12-09 14:31] VITALS: PULSE 48; RESP 18; O2SAT 100
== END 2022-12-09 14:31 | disposition home or self-care (01) ==
PROVIDERS: Emergency Provider Emergency Medicine
DX: R53.1 Weakness (principal); Z79.82 Long term (current) use of aspirin; Z79.02 Long term (current) use of antithrombotics/antiplatelets; I10 Essential (primary) hypertension; E78.5 Hyperlipidemia, unspecified; Z87.891 Personal history of nicotine dependence
CPT/HCPCS: 36415; 71045; 80053; 81003; 84443; 84484; 85025; 93005; 96360; 99285; J7030